=== PATIENT | female | born 1975 | race African-American/Black ===

== ENCOUNTER 2016-12-03 12:48 | Emergency (ER) | payer MEDICAID, OTHER ==
[~2016-12-03] VITALS: Ht 154.9 cm; Wt 80.0 kg
[2016-12-03 15:10] LABS: BASOPHILS % 0.7 % (0.0-2.0); EOSINOPHILS % 0.4 % (0.0-5.0); HEMATOCRIT. 41.3 % (36.0-48.0); LYMPHOCYTES % 15.4 % (20.0-50.0); MEAN CORPUSCULAR HEMOGLOBIN 29.8 pg (28.0-32.0); MEAN CORPUSCULAR VOLUME 87.7 fL (81.0-99.0); MEAN PLATELET VOLUME 7.1 fl (7.4-10.4); MONOCYTES % 6.2 % (2.0-8.0); NEUTROPHILS % 77.3 % (40.0-76.0); PLATELET 257 x1000/uL (130-400); RED BLOOD CELL COUNT 4.71 mill/uL (4.2-5.4); RED CELL DISTRIBUTION WIDTH 14.3 % (11.6-14.6); WHITE BLOOD COUNT 8.3 x1000/uL (4.5-11.0)
[2016-12-03 15:11] LABS: CHLORIDE 106 mEq/L (98-107); INDEX HEMOLYSI 1 (1-3); INDEX ICTERIC 1 (1-4); INDEX LIPEMIC 1 (1-3)
[2016-12-03 15:12] LABS: CALCIUM 8.6 mg/dL (8.5-10.1)
[2016-12-03 15:22] LABS: ANION GAP 12; B-HCG QUANTITATIVE < 1 mIU/mL (<3); CARBON DIOXIDE 25 mEq/L (21-32); UREA NITROGEN BLOOD 8 mg/dL (7-21); eGFR > 60 mL/min (>60)
[2016-12-03 16:06] VITALS: BP 132/81
== END 2016-12-03 16:52 | disposition home or self-care (01) ==
LOC: ER 14:18
DX: O03.9 Complete or unspecified spontaneous abortion without complication (principal); Z98.51 Tubal ligation status
CPT/HCPCS: 36415; 76830; 76856; 80048; 81025; 84702; 85025; 86850; 86900; 99285

== ENCOUNTER 2018-12-09 01:11 | Emergency (ER) | payer OTHER ==
[~2018-12-09] VITALS: Ht 152.4 cm; Wt 64.0 kg
[2018-12-09] MEDS ORDERED: METHYLPREDNISOLONE SOD SUCC 125 MG/2 ML VIAL IM ONE (04:00)
[2018-12-09] MEDS ORDERED: METHYLPREDNISOLONE SOD SUCC 125 MG/2 ML VIAL IV ONE (04:00)
[2018-12-09 04:14] VITALS: BP 106/80
== END 2018-12-09 04:17 | disposition home or self-care (01) ==
LOC: ER 01:11
DX: L50.9 Urticaria, unspecified (principal); F12.10 Cannabis abuse, uncomplicated
CPT/HCPCS: 96372; 99283; J2930